=== PATIENT | female | born 1990 | race Caucasian/White ===

== ENCOUNTER 2019-02-28 09:26 | Observation (INO) ==
--- NOTE | 2019-02-28 10:30 | OB/GYN Progress Note ---
Date of Encounter: 02/28/19 Time of Encounter: 10:27 - Assessment and Plan (1) 38 weeks gestation of Current Visit: Yes Status: Acute admitted for observation for r/o ROM Subjective - Subjective Principal diagnosis: vaginal discharge Interval history: Patient is a 29 y/o @ 38w2d presents to labor and delivery with complaints of some leaking this morning around 0700. Patient denies contractions or VB. She reports she was dilated 4cm at her last appointment. Patient reports good movement. Patient denies any urinary symptoms, headaches or visual disturbances. Antepartum ROS: movement normal, no vaginal bleeding, no contractions Objective - Exam FHR: auscultation normal, category 1 FHR comments: 145 bpm moderate variability +15x15 accels no decels noted. No contractions noted. Cat. 1 tracing Auscultation: bilateral: normal Abdomen: Present: normal appearance, soft, gravid Uterus: Present: normal Cervical dilation: 5 Cervix effacement: 80 station: -1 Comments: Speculum exam: Negative nitrazine, negative pooling, Negative FERN
--- NOTE | 2019-02-28 11:16 | Discharge Summary ---
Date of Encounter: 02/28/19 Time of Encounter: 11:16 - Discharge Diagnosis (1) 38 weeks gestation of Priority: Primary Status: Acute Comments: R/O rupture of membranes (2) NST (non-stress test) reactive on surveillance Priority: Secondary Status: Acute Comments: FHR 150 bpm moderate variability +15x15 accels no decels noted. No contractions. Cat. 1 tracing - Discharge Medications Prescriptions: No Action 19 Tablet 1 tab PO DAILY Home Medications: 19 Tablet 1 tab PO DAILY 02/28/19 [History] Allergies/Adverse Reactions: Allergy/AdvReac Type Severity Reaction Status Date / Time acetaminophen [From Vicodin] AdvReac Vomiting Verified 02/28/19 09:57 hydrocodone [From Vicodin] AdvReac Vomiting Verified 02/28/19 09:57 Data Procedures and tests throughout hospitalization: Laboratory Tests 02/28/19 10:00 Ur Drug Screen Interp See Below Labs on day of discharge: Labs from last 24 hours 02/28/19 10:00 Ur Drug Screen Interp See Below Date of admission: 02/28/19 09:26 Discharging clinician: Tonia Hall Anticipated date of discharge: 02/28/19 - Patient Status Disposition: Home, Self-Care Condition: Good Functional capacity at discharge: independent ambulation - Discharge Instructions Follow Up With: Manju Roman MD [Partnered Physician] - - Diet and Activity Activity: increase activity as tolerated Diet: regular diet Hospital Course [employer] Time Attestation: Total time spent providing and/or coordinating discharge services: Time Spent: Less than 30 minutes Exam - Other Additional findings: FHR 150 bpm moderate variability +15x15 accels no decels noted. No contractions noted. Cat. 1 tracing - VTE Reasons for not Prescribing Prophylaxis: Treatment not Indicated - Low risk for VTE
[2019-02-28 11:54] LABS: Amphetamine Screen,Urine Negative ng/mL (Cutoff=1000); Barbiturate Screen,Urine Negative ng/mL (Cutoff=200); Benzodiazepines Screen,Urine Negative ng/mL (Cutoff=200); Cannabinoid Screen,Urine Negative ng/mL (Cutoff = 50); Cocaine Screen,Urine Negative ng/mL (Cutoff= 300); Opiate Screen,Urine Negative ng/mL (Cutoff=300); Phencyclidine Screen,Urine Negative ng/mL (Cutoff=25)
== END 2019-02-28 11:30 | disposition home or self-care (01) ==
LOC: 1NENULAB
PROVIDERS: ADMIT Obstetrics & Gynecology; ATTEND Obstetrics & Gynecology

== ENCOUNTER 2019-03-01 17:40 | Observation (INO) ==
[2019-03-01 19:06] LABS: Amphetamine Screen,Urine Negative ng/mL (Cutoff=1000); Barbiturate Screen,Urine Negative ng/mL (Cutoff=200); Benzodiazepines Screen,Urine Negative ng/mL (Cutoff=200); Cannabinoid Screen,Urine Negative ng/mL (Cutoff = 50); Cocaine Screen,Urine Negative ng/mL (Cutoff= 300); Opiate Screen,Urine Negative ng/mL (Cutoff=300); Phencyclidine Screen,Urine Negative ng/mL (Cutoff=25)
--- NOTE | 2019-03-01 20:33 | OB/GYN Progress Note ---
Date of Encounter: 03/01/19 Time of Encounter: 20:31 - Assessment and Plan (1) Uterine contractions Current Visit: Yes Status: Acute Per RN cervical exam unchanged from previous admission, no change on serial cervical exams,even after ambulating on unit. Discharged home with labor and when to return to triage precautions. (2) 38 weeks gestation of Current Visit: No Status: Acute (3) NST (non-stress test) reactive on surveillance Current Visit: No Status: Acute Subjective - Subjective Interval history: 38+3 presents with contractions. pt states she has been having contractions this after noon that are becoming stronger and more consistent. Reports good movement, denies vaginal bleeding or leaking of fluid Antepartum ROS: movement normal, contractions, no loss of fluid, no vagina l bleeding Objective - Vital Signs Vital Signs: Intake and Output 03/01/19 03/01/19 03/01/19 07:59 15:59 23:59 Other: Weight 93.6 kg Patient Weight 03/01/19 23:59 Weight 93.6 kg - Exam FHR: auscultation normal FHR comments: Baseline 145 Abdomen: Present: soft, gravid Cervical dilation: 580/-1
== END 2019-03-01 19:40 | disposition home or self-care (01) ==
LOC: 1NENULAB
PROVIDERS: ADMIT Student in an Organized Health Care Education/Training Program; ATTEND Student in an Organized Health Care Education/Training Program

== ENCOUNTER 2019-03-04 08:24 | Inpatient (IN) ==
[2019-03-04 09:54] LABS: Amphetamine Screen,Urine Negative ng/mL (Cutoff=1000); Barbiturate Screen,Urine Negative ng/mL (Cutoff=200); Benzodiazepines Screen,Urine Negative ng/mL (Cutoff=200); Cannabinoid Screen,Urine Negative ng/mL (Cutoff = 50); Cocaine Screen,Urine Negative ng/mL (Cutoff= 300); Opiate Screen,Urine Negative ng/mL (Cutoff=300); Phencyclidine Screen,Urine Negative ng/mL (Cutoff=25)
[2019-03-04] MEDS ORDERED: Ondansetron ODT 4 MG TAB.RAPDIS SL ONE (12:16)
[2019-03-04] MEDS ORDERED: Ringers Solution, Lactated 1,000 ML ONE (14:15)
[2019-03-04] MEDS ORDERED: Metoclopramide 10 MG/2 ML VIAL IVP PRN (14:24)
[2019-03-04] MEDS ORDERED: Lidocaine 1% 20 ML MDV INFILT PRN (14:24)
[2019-03-04] MEDS ORDERED: Ondansetron 4 MG/2 ML VIAL IVP PRN (14:24)
[2019-03-04] MEDS ORDERED: Naloxone 0.4 MG/ML INJ IVP PRN (14:24)
[2019-03-04] MEDS ORDERED: Famotidine 20 MG/2 ML VIAL IVP PRN (14:24)
[2019-03-04] MEDS ORDERED: *HR* Nalbuphine 10 MG/ML AMPUL IVP PRN (14:24)
--- NOTE | 2019-03-04 14:29 | OB/GYN History & Physical ---
Date of Encounter: 03/04/19 Time of Encounter: 14:26 Assessment and Plan (1) 38 weeks gestation of Current visit: No Status: Acute Under the care of Dr. Roman (2) Spontaneous onset of labor Current visit: Yes Status: Acute Patient arrived at 5 cm, over several hours she progressed to 7 cm, at which time she was admitted for delivery. History of Present Illness Chief complaint: Labor HPI: Ms. Garcia is a 29 year old female , 38 weeks and 6 days presenting with contractions. Patient endorses bloody show, movement, contractions that are irregular. She denies leakage of fluid. She denies STD or UTI during this , she denies alcohol, tobacco, illicit drug use during this . She was gestational diabetes negative, and preeclampsia negative. Patient has had good care following with . GBS negative A positive RPR nonreactive HIV negative Hepatitis B nonreactive Past Med Surg Social Fam HX - Past Medical History Attestation: Yes The following information was validated with the patient. Medical history: no medical history Psychiatric history: no psych history - Past Surgical History Surgical History: no surgical history, other Additional surgical history: wisdom teeth - Social History Smoking Status: Never smoker Smokeless Tobacco Status: No Alcohol use: none Drug use: none - Family History Mother Adopted: No Family Member Ethnicity: Non- Living Status: Still Living Hx Family Cardiac Disorders: Yes (hypertension) Hx Family Respiratory Disorders: No Hx Family Cancer: No Hx Family GI Disorders: No Hx Family Endocrine Disorder: Yes (Liver Disease) Hx Family Neuromuscular Disorders: No Hx Family Neurologic Disorders: No Hx Family HEENT Disorders: No Hx Family Autoimmune Disorders: No Obstetrical History - Pregnancies : 2 Para: 1 Term: 1 : 0 Ab's: 0 Livin Medications and Allergies 19 Tablet 1 tab PO DAILY 02/28/19 [History] Allergy/AdvReac Type Severity Reaction Status Date / Time hydrocodone [From Vicodin] AdvReac Mild Vomiting Verified 03/04/19 09:16 Review of System OB - Constitutional Constitutional ROS IM: no chills, no fatigue, no headache(s), no malaise, no weakness - Cardiovascular Cardiovascular: no chest pain, no diaphoresis, no dyspnea, no lightheadedness - Respiratory Respiratory: no cough, no dyspnea - Gastrointestinal Gastrointestinal: nausea, no abdominal pain, no bloating, no constipation, no cramping, no diarrhea, no vomiting - Genitourinary Genitourinary: pelvic pain, no abnormal vaginal bleeding, no difficulty voiding, no dysuria, no urinary incontinence, no urinary urgency - Psychiatric Psychiatric: no anxiety, no depression, no irritability Exam - Vital Signs Vital signs: Initial Vital Signs Temp Pulse Resp BP 97.7 F 68 16 124/81 03/04/19 09:17 03/04/19 09:17 03/04/19 09:17 03/04/19 09:17 - Constitutional Constitutional: well developed, well nourished, average body habitus, mild distress - HEENT HEENT: EOMI, PERRL, Normocephaly, Mucus Membranes Moist - Neck Neck exam: full ROM, normal inspection - Lungs Respiratory exam: CTAB - Cardiovascular Cardiovascular exam: RRR, +S1, +S2 - Breasts Breast: bilateral: normal - Abdomen Abdomen: Present: gravid, non tender - Extremities Extremities exam: full ROM, normal inspection, radial pulses palpable and symmetrical - Cervix Dilation: 7 (RN Exam) Effacement: 100 Station: 0 - Uterus Uterus exam: Present: normal size, normal contour - Anus/Rectum Anus/Rectum: Present: normal perianal skin Results Result Diagrams: 03/04/19 14:23 All other labs normal. - VTE Reasons for not Prescribing Prophylaxis: Treatment not Indicated - Low risk for VTE
[2019-03-04] MEDS ORDERED: Oxytocin 20 units/ LR 1000 mL 20 UNIT/1,000 ML BAG IVC SCH ×2 (14:30→17:49)
[2019-03-04] MEDS ORDERED: Ringers Solution, Lactated 1,000 ML IVC SCH (14:30)
[2019-03-04] MEDS ORDERED: Oxytocin 20 units/ LR 1000 mL 20 UNIT/1,000 ML BAG IVC ONE (14:36)
[2019-03-04 14:43] LABS: Basophils # 0.1 K/mcL (0.0-0.2); Basophils % 0.4 %; Hematocrit 40.5 % (35.3-44.9); Immature Granulocytes % 0.9 % (0-4); Lymphocytes # 2.2 K/mcL (0.6-4.6); Lymphocytes % 15.2 %; Mean Corpuscular HGB Conc 32.1 g/dL (31.6-35.5); Mean Corpuscular Volume 87.3 fL (83.0-100.0); Mean Platelet Volume 11.6 fL (9.4-12.4); Monocytes # 0.9 K/mcL (0.0-1.3); Monocytes % 6.2 %; Neutrophils # 10.9 K/mcL (1.6-8.9); Platelet Count 263 K/mcL (140-400); Red Blood Count 4.64 M/mcL (3.82-4.97); Segmented Neutrophils % 77.3 %; White Blood Count 14.1 K/mcL (4.3-11.1)
--- NOTE | 2019-03-04 15:39 | OB/GYN Procedure Note ---
Delivery - Delivery Date: 03/04/19 Provider: Saranya Marroquin (Gustabo Taylor DO, PGY1) Intrapartum events: none Delivery induction: none Delivery augmentation: rupture of membranes (at completely dilated) Delivery monitor: external FHT, external uterine Anesthesia: local (for laceration repair) Quantitated Blood Loss: 100 - (s) A Infant Delivery Date: 03/04/19 Delivery Time: 14:46 Presentation: vertex Position: OA Route of delivery: Gender: Male Viability: Viable at 1 minute: 9 at 5 mins: 9 Shoulder Dystocia: not encountered Placenta: spontaneous Cord: 3 umbilical vessels - Repair Episiotomy: none Laceration Description: None, Perineal - 2nd Degree - Complications Delivery complications: none Delivery comments: Called to room for delivery. Patient quickly progressed from 7cm to a rim. AROM for small amount of clear fluid. Patient with extreme urge to push. I was gowned and gloved and together with Gustabo Taylor DO, PGY1 delivered a viable male infant over second-degree perineal laceration, repaired with 3-0 Vicryl in the usual fashion. placed on maternal abdomen for drying and stimulation. Cord clamped and cut after pulsation ceased. Spontaneous delivery of intact placenta, EBL 100 mL. No nuchal cord, shoulder dystocia, or meconium encountered. Mother and infant in kangaroo care for 2 hour recovery. - Disposition Mom disposition: stable in LDR disposition: stable in LDR
[2019-03-04] MEDS ORDERED: Ibuprofen 600 MG TABLET PO ONE (15:49)
[2019-03-04] MEDS ORDERED: *HR* HYDROcodone/Acet 5/325 mg TABLET PO PRN (17:49)
[2019-03-04] MEDS ORDERED: Ibuprofen 600 MG TABLET PO PRN (17:49)
[2019-03-04] MEDS ORDERED: Lanolin 7 G OINT...G. TP PRN (17:49)
[2019-03-04] MEDS ORDERED: Measles/Mumps/Rubella Vacc 0.5 ML VIAL SQ PRN (17:49)
[2019-03-04] MEDS ORDERED: Benzocaine/Menthol 56 GM AEROSOL SPRAY TP PRN (17:49)
[2019-03-04] MEDS ORDERED: Acetaminophen 325 MG TABLET PO PRN (17:49)
[2019-03-05 08:03] VITALS: BP 136/87
[2019-03-05] MEDS ORDERED: Prenatal Vit/FA 1 EACH TABLET PO SCH (09:00)
--- NOTE | 2019-03-05 10:46 | Discharge Summary ---
Date of Encounter: 03/05/19 Time of Encounter: 10:44 - Discharge Diagnosis (1) Vaginal delivery Priority: Primary Status: Acute Comments: Pt meeting milestones. She desires discharge home. She declines contraception at this time but will discuss at [facility]. (2) Breast feeding status of mother Priority: Secondary Status: Acute - Discharge Medications Prescriptions: New Ibuprofen [Motrin] 600 mg PO Q6HR PRN #30 tablet PRN Reason: Cramping Docusate [Colace] 100 mg PO BID #30 capsule Lanolin [Lansinoh] 1 appl TP TID PRN oint...g. PRN Reason: Sore Nipples Continued 19 Tablet 1 tab PO DAILY Home Medications: 19 Tablet 1 tab PO DAILY 02/28/19 [History] Docusate [Colace] 100 mg PO BID #30 capsule 03/05/19 [Rx] Ibuprofen [Motrin] 600 mg PO Q6HR PRN #30 tablet 03/05/19 [Rx] Lanolin [Lansinoh] 1 appl TP TID PRN oint...g. 03/05/19 [Rx] Allergies/Adverse Reactions: Allergy/AdvReac Type Severity Reaction Status Date / Time hydrocodone [From Vicodin] AdvReac Mild Vomiting Verified 03/04/19 09:16 Data Procedures and tests throughout hospitalization: Laboratory Tests 03/04/19 03/04/19 08:30 14:23 WBC 14.1 H RBC 4.64 Hgb 13.0 Hct 40.5 MCV 87.3 MCH 28.0 MCHC 32.1 RDW 13.0 Plt Count 263 MPV 11.6 Immature Gran % 0.9 Seg Neutrophils % 77.3 Lymphocytes % 15.2 Monocytes % 6.2 Eosinophils % 0.0 Basophils % 0.4 Neutrophils # 10.9 H Lymphocytes # 2.2 Monocytes # 0.9 Eosinophils # 0.0 Basophils # 0.1 Urine Opiates Screen Negative Ur Buprenorphine Scrn Negative Ur Barbiturates Screen Negative Ur Phencyclidine Scrn Negative Ur Amphetamines Screen Negative U Benzodiazepines Scrn Negative Urine Cocaine Screen Negative U Marijuana (THC) Screen Negative Ur Drug Screen Interp See Below Labs on day of discharge: Labs from last 24 hours 03/04/19 14:23 WBC 14.1 H RBC 4.64 Hgb 13.0 Hct 40.5 MCV 87.3 MCH 28.0 MCHC 32.1 RDW 13.0 Plt Count 263 MPV 11.6 Immature Gran % 0.9 Seg Neutrophils % 77.3 Lymphocytes % 15.2 Monocytes % 6.2 Eosinophils % 0.0 Basophils % 0.4 Neutrophils # 10.9 H Lymphocytes # 2.2 Monocytes # 0.9 Eosinophils # 0.0 Basophils # 0.1 Date of admission: 03/04/19 08:24 Primary care physician: PCP NONE Consults: 03/04/19 17:49 Consult to Ice Maker [CONS] Routine Comment: Vaginal delivery, consult needed Discharging clinician: Azra Shrestha Anticipated date of discharge: 03/05/19 - Patient Status Disposition: Home, Self-Care Condition: Good Functional capacity at discharge: independent ambulation Overall status at discharge: patient is progressing back to baseline - Discharge Instructions Follow Up With: NONE,PCP [Primary Care Provider] - Saranya Marroquin, CNM [Advanced Practice Nurse] - - Diet and Activity Activity: increase activity as tolerated Diet: regular diet Hospital Course Reason for admission: active labor Delivery: Episiotomy: none Laceration: 2nd degree Other procedures: none complications: none Discharge diagnosis: IUP at term delivered [place] baby: male Hospital course: - Delivery Date: 03/04/19 Provider: Saranya Marroquin (Gustabo Taylor DO, PGY1) Intrapartum events: none Delivery induction: none Delivery augmentation: rupture of membranes (at completely dilated) Delivery monitor: external FHT, external uterine Anesthesia: local (for laceration repair) Quantitated Blood Loss: 100 - (s) A Delivery Date: 03/04/19 Delivery Time: 14:46 Presentation: vertex Position: OA Route of delivery: Gender: Male Viability: Viable at 1 minute: 9 at 5 mins: 9 Shoulder Dystocia: not encountered Placenta: spontaneous Cord: 3 umbilical vessels - Repair Episiotomy: none Laceration Description: None, Perineal - 2nd Degree - Complications Delivery complications: none - Disposition Mom disposition: home PPD1 [place] disposition: home with mother, Time Attestation: Total time spent providing and/or coordinating discharge services: Time Spent: Less than 30 minutes Exam - Constitutional Vitals: Temp Pulse Resp BP Pulse Ox 98.7 F 58 18 136/87 97 03/05/19 08:02 03/05/19 08:02 03/05/19 08:02 03/05/19 08:02 03/05/19 08:02 General appearance IM: A&O X 3 - Cardiovascular Cardiovascular exam IM: Present: RRR - GI/Abdominal GI/Abdominal exam IM: soft - Uterine Tone: Firm Uterus Position: 2 Fingers Below Umbilicus - Extremities Exam Extremities exam IM: Present: normal inspection - Neurological Exam Neurological exam: normal gait, oriented X3 - Psychiatric Additional comments: reports good mood
== END 2019-03-05 12:42 | disposition home or self-care (01) | DRG 807 ==
LOC: 1NENULAB → OBSVTOIN 08:24 → 1NENULAB 14:11 → 1NENUOBS 17:41
PROVIDERS: ADMIT Registered Nurse; ATTEND Registered Nurse